=== PATIENT | male | born 1970 | race Caucasian/White ===

== ENCOUNTER 2016-11-05 09:14 | Emergency (ER) | payer OTHER ==
[2016-11-05 09:36] VITALS: BP 155/109; PULSE 71; RESP 18; TEMP 98.6; O2SAT 99; BMI 23.6
[2016-11-05] MEDS ORDERED: Oxycodone/Acetaminophen 5/325 mg Tab PO STA (09:43)
--- NOTE | 2016-11-05 09:48 | ED PDOC ---
Arrival/HPI - General Chief Complaint: Abnormal Skin Integrity Time Seen by Provider: 11/05/16 09:38 Historian: Patient - History of Present Illness Narrative History of Present Illness (Text): 11/05/16 09:45 46yo male with PMHx of hypertension who present to ED with complaint of painful rash to his left leg x 5days. States he saw a Doctor at his job and was placed on Valacyclovir for shingles. Came to ED secondary to the pain. Denies fever, chills, any inciting factors, any other complaint. Past Medical History - Provider Review Nursing Documentation Reviewed: Yes - Infectious Disease Hx of Infectious Diseases: None - Psychiatric Hx Substance Use: No Family/Social History - Physician Review Nursing Documentation Reviewed: Yes Family/Social History: Unknown Family HX Smoking Status: Current Some Days Smoker Hx Alcohol Use: No Hx Substance Use: No Allergies/Home Meds Allergies/Adverse Reactions: Allergies No Known Allergies Allergy (Verified 11/05/16 09:36) Home Medications: Home Meds Medication Instructions Recorded Confirmed amLODIPine [Norvasc] 10 mg PO 11/05/16 Review of Systems - Physician Review All systems were reviewed & negative as marked: Yes - Review of Systems Constitutional: Normal Eyes: Normal ENT: Normal Respiratory: Normal Cardiovascular: Normal Gastrointestinal: Normal Genitourinary Male: Normal Musculoskeletal: Normal Skin: Rash Neurological: Normal Endocrine: Normal Hemo/Lymphatic: Normal Psychiatric: Normal Physical Exam Vital Signs Reviewed: Yes Vital Signs Temp Pulse Resp BP Pulse Ox 11/05/16 09:34 98.6 F 71 18 155/109 H 99 Temperature: Afebrile Blood Pressure: Normal Pulse: Regular Respiratory Rate: Normal Appearance: Positive for: Well-Appearing, Non-Toxic, Comfortable Pain Distress: None Mental Status: Positive for: Alert and Oriented X 3 - Systems Exam Head: Present: Atraumatic, Normocephalic Pupils: Present: PERRL Extroacular Muscles: Present: EOMI Conjunctiva: Present: Normal Mouth: Present: Moist Mucous Membranes Neck: Present: Normal Range of Motion Respiratory/Chest: Present: Clear to Auscultation, Good Air Exchange. No: Respiratory Distress, Accessory Muscle Use Cardiovascular: Present: Regular Rate and Rhythm, Normal S1, S2. No: Murmurs Abdomen: Present: Normal Bowel Sounds. No: Tenderness, Distention, Peritoneal Signs Back: Present: Normal Inspection Upper Extremity: Present: Normal Inspection. No: Cyanosis, Edema Lower Extremity: Present: Normal Inspection. No: Edema Neurological: Present: GCS=15, CN II-XII Intact, Speech Normal Skin: Present: Warm, Dry, Rashes (PAtch of vesicular rash on erythematous base noted on proximal left thigh, mid thight and proximal lower anterior leg), Normal Color Psychiatric: Present: Alert, Oriented x 3, Normal Insight, Normal Concentration Disposition/Present on Arrival - Present on Arrival Any Indicators Present on Arrival: No History of DVT/PE: No History of Uncontrolled Diabetes: No Urinary Catheter: No History of Decub. Ulcer: No History Surgical Site Infection Following: None - Disposition Have Diagnosis and Disposition been Completed?: Yes Diagnosis: Shingles, Rash Disposition: HOME/ ROUTINE Disposition Time: 09:50 Patient Plan: Discharge Condition: STABLE Discharge Instructions (ExitCare): Shingles (ED) Additional Instructions: Follow up with your private Doctor/Glove Operator Return to ED for any new or worsening symptoms Prescriptions: Cephalexin [cephalexin] 500 mg PO QID #28 cap oxyCODONE/Acetaminophen [Percocet 5/325 mg Tab] 1 ea PO Q6 #9 tab Referrals: Mar Tirado MD [Staff Provider] - Follow up with primary Forms: WORK NOTE
== END 2016-11-05 10:11 | disposition home or self-care (01) ==
LOC: ED 09:14
DX: B02.9 Zoster without complications (principal)

== ENCOUNTER 2017-04-20 13:00 | Emergency (ER) | payer OTHER ==
[2017-04-20 13:00] VITALS: BMI 23.6
[2017-04-20 13:07] VITALS: RESP 16; TEMP 98.3; O2SAT 98
[2017-04-20] MEDS ORDERED: Sodium Chloride 0.9% 500 ML IV STA (13:36)
--- NOTE | 2017-04-20 13:47 | ED PDOC ---
Arrival/HPI - General Chief Complaint: Flu-like Symptoms Time Seen by Provider: 04/20/17 13:03 Historian: Patient - History of Present Illness Narrative History of Present Illness (Text): 04/20/17 13:44 46 year old male presents to the Emergency department complaining of diarrhea and nausea for 1 day. Patient also complains of generalized myalgia, runny nose and productive cough with clear sputum. He notes rash for one week but denies any fever, chills, chest pain, shortness of breath, vomiting, back pain, neck pain, headache, dizziness, or any other complaints. 04/20/17 15:43 Time/Duration: 24 hours Symptom Onset: Gradual Symptom Course: Unchanged Context: Home Past Medical History - Provider Review Nursing Documentation Reviewed: Yes - Infectious Disease Hx of Infectious Diseases: None - Cardiac Hx Hypertension: Yes - Psychiatric Hx Substance Use: No - Anesthesia Hx Anesthesia: No Family/Social History - Physician Review Nursing Documentation Reviewed: Yes Family/Social History: No Known Family HX Smoking Status: Current Some Days Smoker Hx Alcohol Use: No Hx Substance Use: No Allergies/Home Meds Allergies/Adverse Reactions: Allergies No Known Allergies Allergy (Verified 04/20/17 13:07) Home Medications: Home Meds Medication Instructions Recorded Confirmed amLODIPine [Norvasc] 10 mg PO DAILY 11/05/16 04/20/17 Review of Systems - Physician Review All systems were reviewed & negative as marked: Yes - Review of Systems Constitutional: absent: Fevers, Night Sweats ENT: Rhinorrhea Respiratory: Cough (productive). absent: SOB Cardiovascular: absent: Chest Pain Gastrointestinal: Diarrhea, Nausea. absent: Vomiting Musculoskeletal: Myalgias (generalized). absent: Back Pain, Neck Pain Skin: Rash Neurological: absent: Headache, Dizziness Endocrine: Normal Hemo/Lymphatic: Normal Psychiatric: Normal Physical Exam Vital Signs Reviewed: Yes Vital Signs Temp Pulse Resp BP Pulse Ox 04/20/17 13:03 98.3 F 90 16 158/101 H 98 Temperature: Afebrile Blood Pressure: Hypertensive Pulse: Regular Respiratory Rate: Normal Appearance: Positive for: Well-Appearing, Non-Toxic, Comfortable Pain Distress: None Mental Status: Positive for: Alert and Oriented X 3 - Systems Exam Head: Present: Atraumatic, Normocephalic Pupils: Present: PERRL Extroacular Muscles: Present: EOMI Conjunctiva: Present: Normal Ears: Present: Normal, NORMAL TM, Normal Canal. No: Erythema, TM Bulging, Fluid , TM Perf Mouth: Present: Moist Mucous Membranes Pharnyx: Present: ERYTHEMA. No: EXUDATE Neck: Present: Normal Range of Motion Respiratory/Chest: Present: Clear to Auscultation, Good Air Exchange. No: Respiratory Distress, Accessory Muscle Use Cardiovascular: Present: Regular Rate and Rhythm, Normal S1, S2. No: Murmurs Abdomen: Present: Normal Bowel Sounds. No: Tenderness, Distention, Peritoneal Signs Back: Present: Normal Inspection Upper Extremity: Present: Normal Inspection. No: Cyanosis, Edema Lower Extremity: Present: Normal Inspection. No: Edema Neurological: Present: GCS=15, CN II-XII Intact, Speech Normal Skin: Present: Rashes (3cm x 1cm color change on superior aspect of gluteal fold ) Lymphatic: Present: Cervical Adenopathy (tender cervical lymphadenopathy) Psychiatric: Present: Alert, Oriented x 3, Normal Insight, Normal Concentration Medical Decision Making ED Course and Treatment: 04/20/17 13:52 Impression: 46 year old male presents to the Emergency department complaining of diarrhea and nausea. Patient also complaining of myalgia, rhinorrhea, cough, and rash. Also complaining of nausea and diarrhea. Plan: -- Labs -- Chest xray -- Toradol -- IV Fluids -- Influenza A B test -- Rapid strep test -- Reassess and disposition Progress Notes: Will treat rash as fungal infection and have pt followup with PMD. 04/20/17 14:40 Strep and flu negative. Cxray negative. Labs grossly normal. Symptoms consistent with gastroenteritis/viral uri. Tolerating po. Instructed to follow -up with PMD for htn. Will give home dose of norvasc as he did not take today. - Lab Interpretations Lab Results: 04/20/17 14:05 04/20/17 14:05 Lab Results 04/20/17 14:05: Sodium 145, Potassium 4.2, Chloride 104, Carbon Dioxide 29, Anion Gap 16, BUN 21, Creatinine 1.3, Est GFR ( Amer) > 60, Est GFR (Non- Af Amer) 59, Random Glucose 107, Calcium 10.0, Total Bilirubin 0.4, AST 30, ALT 58 H, Alkaline Phosphatase 84, Total Protein 8.3, Albumin 4.6, Globulin 3.7, Albumin/Globulin Ratio 1.2 04/20/17 14:05: Influenza Typ A,B (EIA) Negative for flu a/b, Grp A Beta Strep Ag Negative 04/20/17 14:05: WBC 6.5, RBC 4.86, Hgb 14.3, Hct 43.0, MCV 88.5, MCH 29.4, MCHC 33.3, RDW 13.9, Plt Count 182, MPV 11.3 H, Gran % 65.7, Lymph % (Auto) 26.3, [place] % (Auto) 4.3, Eos % (Auto) 3.2, Baso % (Auto) 0.5, Gran # 4.25, Lymph # 1.7 , [place] # 0.3, Eos # 0.2, Baso # 0.03 I have reviewed the lab results: Yes - RAD Interpretation Radiology Orders: 04/20/17 13:35 CHEST TWO VIEWS (PA/LAT) [RAD] Stat - Medication Orders Current Medication Orders: Discontinued Medications Amlodipine Besylate (Norvasc) 10 mg PO STAT STA Stop: 04/20/17 14:57 Sodium Chloride (Sodium Chloride 0.9%) 500 mls @ 999 mls/hr IV .Q31M STA Stop: 04/20/17 14:06 Last Admin: 04/20/17 14:05 Dose: 999 mls/hr eMAR Start Stop Document 04/20/17 14:05 HI (Rec: 04/20/17 14:25 [id number]) Intravenous Solution Start Date 04/20/17 Start Time 14:05 Ketorolac Tromethamine (Toradol) 30 mg IVP STAT STA Stop: 04/20/17 13:36 Last Admin: 04/20/17 14:05 Dose: 30 mg MAR Pain Assessment Document 04/20/17 14:05 HI (Rec: 04/20/17 14:25 [id number]) Pain Reassessment Is this a pain reassessment? No Sleep Is patient sleeping during reassessment? No Presence of Pain Presence of Pain Yes Location Pain Location Body Site Generalized IVP Administration Document 04/20/17 14:05 HI (Rec: 04/20/17 14:25 [id number]) Charges for Administration # of IVP Administrations 1 - Scribe Statement The provider has reviewed the documentation as recorded by the Scribe Joe Chua All medical record entries made by the Scribe were at my direction and personally dictated by me. I have reviewed the chart and agree that the record accurately reflects my personal performance of the history, physical exam, medical decision making, and the department course for this patient. I have also personally directed, reviewed, and agree with the discharge instructions and disposition. Disposition/Present on Arrival - Present on Arrival Any Indicators Present on Arrival: No History of DVT/PE: No History of Uncontrolled Diabetes: No Urinary Catheter: No History of Decub. Ulcer: No History Surgical Site Infection Following: None - Disposition Have Diagnosis and Disposition been Completed?: Yes Diagnosis: Viral URI, Gastroenteritis, Rash, Hypertension Disposition: HOME/ ROUTINE Disposition Time: 14:42 Patient Plan: Discharge Patient Problems: Current Active Problems Problem Status Onset Gastroenteritis Acute Hypertension Acute Rash Acute Viral URI Acute Condition: GOOD Additional Instructions: Follow-up with PMD within 2 days. Follow-up with PMD for closer monitoring of blood pressure. Return to ED if condition worsens. Use lotrimin on rash in buttock Prescriptions: Clotrimazole 1% [Lotrimin AF 1%] 1 appl TOP TID #1 tub [facility] - Follow up with primary Forms: [facility] (Vietnamese), WORK NOTE
[2017-04-20 14:23] LABS: BASO # 0.03 K/mm3 (0.0-2.0); BASO % 0.5 % (0.0-3.0); EOS # 0.2 (0.0-0.7); EOS % 3.2 % (1.5-5.0); GRAN # 4.25 (1.4-6.5); GRAN % 65.7 % (50.0-68.0); LYMPH # 1.7 (1.2-3.4); LYMPH % 26.3 % (22.0-35.0); MEAN CELL VOLUME 88.5 fl (80.0-105.0); MEAN CORPUSCULAR HEMOGLOBIN 29.4 pg (25.0-35.0); MEAN CORPUSCULAR HGB CONC 33.3 g/dl (31.0-37.0); MEAN PLATELET VOLUME 11.3 fl (7.0-11.0); MONO # 0.3 (0.1-0.6); MONO % 4.3 % (1.0-6.0); RED CELL DISTRIBUTION WIDTH 13.9 % (11.5-14.5); WHITE BLOOD COUNT 6.5 10^3/ul (4.5-11.0)
--- NOTE | 2017-04-20 14:27 | RAD ---
HISTORY: COUGH, myalgias COMPARISON: None available. TECHNIQUE: Chest PA and lateral FINDINGS: LUNGS: No focal consolidation. Please note that chest x-ray has limited sensitivity for the detection of pulmonary masses. PLEURA: No significant pleural effusion identified. No definite pneumothorax . CARDIOVASCULAR: Heart size appears within normal limits. OSSEOUS STRUCTURES: Degenerative changes. VISUALIZED UPPER ABDOMEN: Unremarkable. OTHER FINDINGS: None. IMPRESSION: No focal consolidation, significant pleural effusion, or definite pneumothorax identified.
[2017-04-20 14:31] LABS: ALB/GLOB RATIO 1.2 (1.1-1.8); ALKALINE PHOSPHATASE 84 U/L (38-126); ALT/SGPT 58 U/L (7-56); AST/SGOT 30 U/L (17-59); BILIRUBIN,TOTAL 0.4 mg/dL (0.2-1.3); BLOOD UREA NITROGEN 21 mg/dL (7-21); CARBON DIOXIDE 29 mmol/L (21-33); CHLORIDE 104 mmol/L (98-107); GFR AFRICAN-AMERICAN > 60; GLUCOSE,RANDOM 107 mg/dL (70-110); POTASSIUM 4.2 mmol/L (3.6-5.0); SODIUM 145 mmol/L (132-148); TOTAL PROTEIN 8.3 g/dL (5.8-8.3)
[2017-04-20 15:44] VITALS: BP 146/87
[2017-04-20 15:45] VITALS: PULSE 65
== END 2017-04-20 15:30 | disposition home or self-care (01) ==
LOC: ED 13:00
DX: J06.9 Acute upper respiratory infection, unspecified (principal); I10 Essential (primary) hypertension; K52.9 Noninfective gastroenteritis and colitis, unspecified; R21 Rash and other nonspecific skin eruption; F17.210 Nicotine dependence, cigarettes, uncomplicated
CPT/HCPCS: 71020; 80053; 85025; 87070; 87430; 87804; 96374; 99284; J1885; J7040